=== PATIENT | male | born 1985 | race Caucasian/White ===

== ENCOUNTER 2018-11-18 01:45 | Outpatient (CLI) | payer OTHER, SELFPAY ==
[2018-11-18 11:59] LABS: ALT 56 U/L (12-78); AST 28 U/L (15-37); Albumin 4.1 g/dL (3.4-5.0); Alkaline Phosphatase 102 U/L (46-116); Bilirubin, Direct 0.31 mg/dL (0.00-0.20); Bilirubin, Total 1.7 mg/dL (0.2-1.0)
== END 2018-11-18 02:05 ==
PROVIDERS: PCP Physician Assistant Medical; Visit Provider Nurse Practitioner Adult Health
DX: R94.5 Abnormal results of liver function studies (principal)
CPT/HCPCS: 36415; 80076

== ENCOUNTER 2019-01-16 16:34 | Outpatient (REF) | payer OTHER, SELFPAY ==
[2019-01-16 21:41] LABS: ALT 119 U/L (12-78); AST 47 U/L (15-37); Alkaline Phosphatase 149 U/L (46-116); Anion Gap 8.9 mmol/L (3-11); BUN 21 mg/dL (7-18); Bilirubin, Direct 0.19 mg/dL (0.00-0.20); Bilirubin, Total 0.8 mg/dL (0.2-1.0); CO2 28.1 mmol/L (21.0-32.0); CREATININE 1.02 mg/dL (0.70-1.30); Calcium 8.9 mg/dL (8.5-10.1); Chloride 101 mmol/L (98-107); Glucose 114 mg/dL (70-100); Sodium 138 mmol/L (136-145); Total Protein 7.9 g/dL (6.4-8.2)
== END 2019-01-16 16:54 ==
LOC: NCHCN 16:34
PROVIDERS: PCP Physician Assistant Medical; Visit Provider Physician Assistant Medical
DX: I10 Essential (primary) hypertension (principal); R74.8 Abnormal levels of other serum enzymes
CPT/HCPCS: 80048; 80076

== ENCOUNTER 2019-04-16 15:58 | Outpatient (REF) | payer OTHER, SELFPAY ==
[2019-04-16 22:04] LABS: ALT 51 U/L (12-78); AST 30 U/L (15-37); Albumin 4.1 g/dL (3.4-5.0); Alkaline Phosphatase 148 U/L (46-116); Bilirubin, Direct 0.22 mg/dL (0.00-0.20); Bilirubin, Total 0.9 mg/dL (0.2-1.0); Total Protein 8.2 g/dL (6.4-8.2)
== END 2019-04-16 16:18 ==
LOC: NCHCN 15:58
PROVIDERS: PCP Physician Assistant Medical; Visit Provider Physician Assistant Medical
DX: R74.8 Abnormal levels of other serum enzymes (principal)
CPT/HCPCS: 80076

== ENCOUNTER 2019-07-30 17:09 | Outpatient (REF) | payer OTHER, SELFPAY ==
[2019-07-30 22:08] LABS: ALT 144 U/L (16-63); Albumin 4.1 g/dL (3.4-5.0); Alkaline Phosphatase 157 U/L (46-116); Bilirubin, Direct 0.24 mg/dL (0.00-0.20)
[2019-07-30 22:17] LABS: AST 64 U/L (15-37)
== END 2019-07-30 17:29 ==
LOC: NCHCN 17:09
PROVIDERS: PCP Physician Assistant Medical; Visit Provider Physician Assistant Medical
DX: R74.8 Abnormal levels of other serum enzymes (principal)
CPT/HCPCS: 80076

== ENCOUNTER 2019-09-03 01:41 | Outpatient (CLI) | payer OTHER, SELFPAY ==
--- NOTE | 2019-09-03 08:30 | ETT_ITS ---
APPROVED REPORT Exam: Exercise Treadmill Patient Location: Out-Patient Stress Nurse: Jackie Ellsworth RN Baseline Rhythm: NSR BMI: 32.63 Indications: Chest Pain, left sided. intermittant Medical History Medical History: HTN, Hyperlipidemia Cardiac Medications: Lisinopril Allergies: No known drug allergies Cardiac Risk Factors: HTN, Hyperlipidemia, FHX of CAD Exercise History: Sedentary Lung Sounds: Clear to auscultation Heart Sounds: Regular Stress Test Details Test: Exercise stress testing was performed using a [facility]itt protocol. Rest Stress HR Resting HR: 84 bpm Max Heart Rate (APMHR): 187 bpm Resting HR Supine: 84 bpm Target HR (85% APMHR): 158 bpm Resting HR Standin bpm Max HR Achieved: 200 bpm % of APMHR: 106 Recovery HR: 121 bpm HR response to stress: Normal HR response to stress BP Resting BP: 142/96 mmHg Resting BP Supine: 142/96 mmHg Resting BP Standin/94 mmHg Max BP: 172/80 mmHg Recovery BP: 118/76 mmHg BP response to stress: Normal blood pressure response to stress. ECG Resting ECG: Sinus Rhythm with early repolarization changes ST Change: ST Elevation Ectopy: none Stress ECG: Sinus Tachycardia ST Change: Upsloping ST depression Stage: 2 Arrhythmia: None Recovery ECG: Clear, Sinus Tachycardia Recovery ST Change: Normal Recovery Arrhythmia: None Clinical Time of Stop for [facility]itt: 11 Reason for Termination: Target HR Achieved, Fatigue Stress Symptoms: General Fatigue Exercise duration: 11 min0 sec Highest Stage Achieved: Stage 4: 4.2 mph at 16% grade. Exercise capacity: 13.45 METs Functional Capacity: Average Capacity Wong Treadmill Score: 11 Stress ECG Conclusion 1. Excellent exercise tolerance ( 13.5 METS) without chest pain 2. Normal heart rate and blood pressure response to exercise 3. Electrocardiographically negative for myocardial ischemia at maximal heart rate 4. There were no dysrhythmias Wong Treadmill Score is 11 which is Low risk. Test Summary supine 84 142/96 standing 925 142/94 98 1 03:00 10 1.7 118 4.64 150/94 98 2 03:00 12 2.5 141 7.05 156/92 98 3 02:59 14 3.4 167 10.16 168/94 96 4 01:59 16 4.2 200 13.45 96 1 min recovery 176 172/80 3 min recovery 133 150/82 6 min recovery 119 122/78 9 min recovery 121 118/76 hr remained elevated throughout recovery
== END 2019-09-03 02:01 ==
PROVIDERS: PCP Physician Assistant Medical; Visit Provider Physician Assistant Medical
DX: R07.89 Other chest pain (principal); I10 Essential (primary) hypertension; E78.5 Hyperlipidemia, unspecified; Z82.49 Family history of ischemic heart disease and other diseases of the circulatory system
CPT/HCPCS: 93017

== ENCOUNTER 2021-09-20 14:48 | Outpatient (REF) | payer OTHER, SELFPAY ==
[2021-09-20 21:10] LABS: Hemoglobin A1C 5.1 % (<5.7)
[2021-09-20 21:13] LABS: ALT 87 U/L (16-63); AST 37 U/L (15-37); Albumin 4.2 g/dL (3.4-5.0); Alkaline Phosphatase 165 U/L (46-116); Anion Gap 11.5 mmol/L (3-11); BUN 22 mg/dL (7-18); CO2 26.5 mmol/L (21.0-32.0); CREATININE 1.2 mg/dL (0.70-1.30); Calcium 8.7 mg/dL (8.5-10.1); Calculated LDL 134 mg/dL (<100); Chloride 102 mmol/L (98-107); Cholesterol 208 mg/dL (<200); Glucose 95 mg/dL (74-106); HDL Cholesterol 41 mg/dL (40-60); Potassium 4.1 mmol/L (3.5-5.1); Sodium 140 mmol/L (136-145); Total Protein 8.2 g/dL (6.4-8.2); Triglyceride 169 mg/dL (<150)
== END 2021-09-20 14:49 | disposition home or self-care (01) ==
LOC: NCHCN 14:48
PROVIDERS: PCP Physician Assistant Medical; Visit Provider Physician Assistant Medical
DX: I10 Essential (primary) hypertension (principal); R74.8 Abnormal levels of other serum enzymes; Z00.8 Encounter for other general examination
CPT/HCPCS: 80053; 80061; 83036

== ENCOUNTER 2022-12-21 16:13 | Outpatient (REF) | payer OTHER, SELFPAY ==
[2022-12-21 20:28] LABS: HCT 46.4 % (40.0-50.0); HGB 15.7 g/dL (13.5-17.5); MCH 29.4 pg (27.0-33.0); MCHC 33.8 % (32.0-36.0); MCV 87 fL (80-95); MPV 10.6 fL (8.0-11.0); Platelet Count 264 10^3/uL (130-400); RBC 5.34 10^6/uL (4.36-5.78); RDW 12.1 % (11.8-14.1); RDW-SD 38.8 fL; WBC 8.59 10^3/uL (4.4-10.8)
[2022-12-21 20:41] LABS: ALT 292 U/L (16-63); AST 91 U/L (15-37); Albumin 4.2 g/dL (3.4-5.0); Alkaline Phosphatase 218 U/L (46-116); Anion Gap 9.3 mmol/L (3-11); BUN 15 mg/dL (7-18); CO2 29.7 mmol/L (21.0-32.0); CREATININE 1.3 mg/dL (0.70-1.30); Calcium 8.9 mg/dL (8.5-10.1); Calculated LDL 120 mg/dL (<100); Chloride 98 mmol/L (98-107); Cholesterol 239 mg/dL (<200); Estimated GFR 73.01 (mL/min/1.73m2); Glucose 95 mg/dL (74-106); HDL Cholesterol 62 mg/dL (40-60); Potassium 3.7 mmol/L (3.5-5.1); Sodium 137 mmol/L (136-145); Total Protein 8.3 g/dL (6.4-8.2); Triglyceride 288 mg/dL (<150)
== END 2022-12-21 16:14 | disposition home or self-care (01) ==
LOC: NCHCN 16:13
PROVIDERS: PCP Physician Assistant Medical; Visit Provider Physician Assistant Medical
DX: I10 Essential (primary) hypertension (principal); R74.8 Abnormal levels of other serum enzymes; Z00.8 Encounter for other general examination
CPT/HCPCS: 80053; 80061; 85027

== ENCOUNTER 2023-10-26 15:18 | Outpatient (CLI) | payer SELFPAY ==
[2023-10-26 15:14] LABS: HCT 47.6 % (40.0-50.0); HGB 15.7 g/dL (13.5-17.5); MCH 29.1 pg (27.0-33.0); MCV 88 fL (80-95); MPV 9.7 fL (8.0-11.0); Platelet Count 233 10^3/uL (130-400); RBC 5.39 10^6/uL (4.36-5.78); RDW 12.2 % (11.8-14.1); RDW-SD 39.9 fL; WBC 7.05 10^3/uL (4.4-10.8)
[2023-10-26 15:24] LABS: Bilirubin Negative (Negative); Blood Trace-intact (Negative); Clarity Clear (Clear); Glucose Negative (Negative); Ketones Negative (Negative); Leukocyte Esterase Negative (Negative); Nitrite Negative (Negative); Urobilinogen 0.2 mg/dL (Up to 0.2); pH 6.5 (5-8)
[2023-10-26 16:01] LABS: Bacteria Negative HPF (Negative); C & S Indicated? No; Crystals Negative HPF (Negative); Epithelial Cells Negative HPF (Negative); Mucus Trace (Negative); RBC 0-2 HPF (0-2); WBC 0-2 HPF (0-5)
[2023-10-26 16:01] LABS: ALT 152 U/L (16-63); AST 64 U/L (15-37); Albumin 3.9 g/dL (3.4-5.0); Alkaline Phosphatase 167 U/L (46-116); BUN 19 mg/dL (7-18); Bilirubin, Direct 0.3 mg/dL (0.0-0.2); Bilirubin, Total 1.1 mg/dL (0.2-1.0); CREATININE 1.2 mg/dL (0.70-1.30); Calcium 8.9 mg/dL (8.5-10.1); Chloride 100 mmol/L (98-107); Estimated GFR 79.88 (mL/min/1.73m2); Glucose 101 mg/dL (74-106); PHOSPHORUS 3.9 mg/dL (2.6-4.7); Sodium 137 mmol/L (136-145); Total Protein 8.2 g/dL (6.4-8.2)
== END 2023-10-26 15:19 | disposition home or self-care (01) ==
LOC: LBO 15:19
PROVIDERS: PCP Physician Assistant Medical; Visit Provider Nurse Practitioner Family
DX: Z13.9 Encounter for screening, unspecified (principal)
CPT/HCPCS: 36415; 80069; 80076; 85027; 81003; 81015

== ENCOUNTER 2023-10-31 11:35 | Outpatient (CLI) | payer SELFPAY ==
--- NOTE | 2023-11-02 12:16 | W.PFT ---
Date of service: 10/31/23 Time of Service: 11:38 Pulmonary Function Test Result Indications: Respirator screening Interpretation Spirometry: No airflow limitation. Impression Normal spirometry Clinical Correlation therefore is recommended.
== END 2023-10-31 11:36 | disposition home or self-care (01) ==
LOC: RT 11:35
PROVIDERS: PCP Physician Assistant Medical; Visit Provider Nurse Practitioner Family
DX: Z13.9 Encounter for screening, unspecified (principal)
CPT/HCPCS: 94010

== ENCOUNTER 2025-07-21 17:00 | Outpatient (REF) | payer OTHER, SELFPAY ==
[2025-07-21 19:18] LABS: Abs Immature Grans 0.01 10^3/uL (0.0-0.06); HCT 42.2 % (40.0-50.0); HGB 14.2 g/dL (13.5-17.5); Immature Grans % 0.2 %; MCH 29.9 pg (27.0-33.0); MCHC 33.6 % (32.0-36.0); MCV 89 fL (80-95); MPV 10.6 fL (8.0-11.0); Platelet Count 215 10^3/uL (130-400); RBC 4.75 10^6/uL (4.36-5.78); RDW 11.9 % (11.8-14.1); RDW-SD 38.2 fL; WBC 6.57 10^3/uL (4.4-10.8)
[2025-07-21 19:24] LABS: ALT 94 U/L (16-63); AST 39 U/L (15-37); Albumin 3.9 g/dL (3.4-5.0); Alkaline Phosphatase 142 U/L (46-116); Anion Gap 8.4 mmol/L (3-11); BUN 24 mg/dL (7-18); Bilirubin, Total 0.7 mg/dL (0.2-1.0); CO2 26.6 mmol/L (21.0-32.0); Calcium 8.9 mg/dL (8.5-10.1); Calculated LDL 125 mg/dL (<100); Chloride 102 mmol/L (98-107); Cholesterol 196 mg/dL (<200); Estimated GFR 87.57 (mL/min/1.73m2); Glucose 94 mg/dL (74-106); HDL Cholesterol 46 mg/dL (>or=40); Potassium 4.2 mmol/L (3.5-5.1); Sodium 137 mmol/L (136-145); Total Protein 7.7 g/dL (6.4-8.2); Triglyceride 127 mg/dL (<150)
[2025-07-21 19:38] LABS: Hemoglobin A1C 5.2 % (<5.7)
== END 2025-07-21 17:01 | disposition home or self-care (01) ==
LOC: NCHCN 17:00
PROVIDERS: PCP Physician Assistant Medical; Visit Provider Physician Assistant Medical
DX: Z13.1 Encounter for screening for diabetes mellitus (principal); R79.89 Other specified abnormal findings of blood chemistry; Z13.220 Encounter for screening for lipoid disorders
CPT/HCPCS: 80053; 80061; 83036; 85025